=== PATIENT | male | born 1995 | race Caucasian/White ===

== ENCOUNTER 2024-09-15 10:38 | Emergency (ER) | payer OTHER ==
[~2024-09-15] VITALS: Ht 170.2 cm; Wt 81.0 kg
[2024-09-15 10:56] VITALS: O2SAT 96
[2024-09-15] MEDS: IBUPROFEN 600MG TABLET PO ONE (12:43)
[2024-09-15 12:47] VITALS: BP 117/74; PULSE 78; RESP 18; TEMP 36.9; O2SAT 98
== END 2024-09-15 12:48 | disposition home or self-care (01) ==
LOC: ER 11:31
DX: S16.1XXA Strain of muscle, fascia and tendon at neck level, initial encounter (principal); S43.402A Unspecified sprain of left shoulder joint, initial encounter; S00.93XA Contusion of unspecified part of head, initial encounter; J45.909 Unspecified asthma, uncomplicated; V49.40XA Driver injured in collision with unspecified motor vehicles in traffic accident, initial encounter; Y93.89 Activity, other specified; Y92.410 Unspecified street and highway as the place of occurrence of the external cause; Y99.8 Other external cause status
CPT/HCPCS: 99282